=== PATIENT | male | born 1940 | race Caucasian/White ===

== ENCOUNTER → 2018-08-22 | Day surgery (SDC) | payer MEDICARE ==
[2018-08-17 11:31] LABS: BASOPHILS % (AUTO) 0.6 % (0-1); EOSINOPHILS # (AUTO) 0.2 X10'3 (0-0.9); EOSINOPHILS % (AUTO) 2.7 % (0-6); LYMPHOCYTES # (AUTO) 1.6 X10'3 (1.1-4.8); LYMPHOCYTES % (AUTO) 21.2 % (21-51); MEAN CORPUSCULAR HEMOGLOBIN 32.4 PG (27.0-31.0); MEAN CORPUSCULAR HGB CONC 34.7 g/dL (33.0-36.5); MEAN CORPUSCULAR VOLUME 93.4 FL (78-98); MEAN PLATELET VOLUME 9.2 FL (7.4-10.4); MONOCYTES # (AUTO) 0.6 X10'3 (0-0.9); MONOCYTES % (AUTO) 8.3 % (2-12); NEUTROPHILS # (AUTO) 5.2 X10'3 (1.8-7.7); NEUTROPHILS % (AUTO) 67.2 % (42-75); PRE OP HEMATOCRIT 41.3 % (42.0-52.0); PRE OP HEMOGLOBIN 14.3 g/dL (14.0-17.9); PRE OP PLATELET COUNT 190 X10'3 (140-440); RED BLOOD COUNT 4.43 X10'6 (4.70-6.10); RED CELL DISTRIBUTION WIDTH 13.2 % (11.5-14.5)
[2018-08-17 11:44] LABS: ALBUMIN 3.7 G/DL (3.4-5.0); ALBUMIN/GLOBULIN RATIO 1.1 (1.1-1.5); ALKALINE PHOSPHATASE 63 IU/L (46-116); BLOOD UREA NITROGEN 24 MG/DL (7-18); CALCIUM 9.4 MG/DL (8.5-10.1); CHLORIDE 109 MMOL/L (99-107); CREATININE 1.41 MG/DL (0.60-1.10); PRE OP ALT 25 U/L (30-65); PRE OP ANION GAP 6 (8-16); PRE OP AST 14 U/L (10-37); PRE OP BILIRUB, TOTAL 0.4 MG/DL (0.0-1.0); PRE OP GLUCOSE 102 MG/DL (70-104); PRE OP POTASSIUM 3.9 MMOL/L (3.4-5.1); PRE OP SODIUM 143 MMOL/L (135-145); TOTAL CARBON DIOXIDE 27.8 MMOL/L (24-32); TOTAL PROTEIN 7.2 G/DL (6.4-8.2); eGFR 49 ML/MIN
[2018-08-17 12:21] LABS: CLARITY,URINE CLEAR (Clear); COLOR,URINE YELLOW (Yellow); GLUCOSE, URINE NEGATIVE (Neg); KETONES,URINE NEGATIVE (Neg); LEUKOCYTE ESTERASE ,URINE NEGATIVE (Neg); NITRITES, URINE NEGATIVE (Neg); OCCULT BLOOD,URINE NEGATIVE (Neg); PROTEIN,URINE NEGATIVE (Neg); UROBILINOGEN,URINE 0.2 E.U/dL (0.2-1.0)
[2018-08-17 12:22] LABS: UA COLLECTION TYPE NON-SPECIFIED
[~2018-08-22] VITALS: Ht 180.3 cm; Wt 83.6 kg
[2018-08-22] VITALS (9 sets, daily range): BP systolic 106–138; BP diastolic 53–76
[~2018-08-22] MED LIST: AMLO2.5T2 PO; ARGI500C9 PO; ASPI-1265 PO; BEET ROOT PO; CAL1TABL8 PO; CHRO1000 PO; CLINDAmcin 900mg/NS 50ml IVPB 50 ML IV ONE; COENZYME B COMPLEX PO; FESO8TAB PO; LACT1CAP65 PO; LIDOcaine 1% 30ml preserv. free vial ONE; TYRO500C2 PO; UBID1CAP2 PO; [UNRECOGNIZED DRUG - OTHER] PO; [UNRECOGNIZED DRUG - OTHER] PO; famotidine 20mg tablet PO ONE; fentaNYL/PF 50MCG/1 ML 2ML syringe ONE; meperidine/PF 25mg/ml syringe IV PRN; midazolam 2 mg/2 ml injection ONE; morphine 4 MG/ML inj SYRINge IV PRN; ondansetron/PF 4mg/2ml inj IV PRN; povidone-iodine 10% topical ointment 28.4gm TP ONE; proCHLORperazine 10 MG/2 ml inj IV PRN; propofol inj 20 ML IV ONE; ringers solution, lacted 1,000 ML IV SCH
--- NOTE | 2018-08-22 12:45 | NUR ---
Received from OR via [facility] , accompanied by Anesthesiologist dr. Maldonado and report given by Anesthesiolgist. Pt sleepy, easily arousable. Drsg to upper back x 2 CDI. Pt denies pain and nausea.
--- NOTE | 2018-08-22 14:35 | NUR ---
PT WAS DISCHARGED TO HOME VIA W/C SAFELY. PT AND SPOUSE BOTH STATE UNDERSTANDING REGARDING ALL DC INSTRUCTIONS. ALL BELONGINGS W/ PT UPON DC TO HOME INCLUDING GLASSES. DRSG X 2 TO MIDDLE BACK CDI. PT DENIES PAIN AND NAUSEA AND STATED READINESS FOR DC TO HOME. PT DC'D TO PERSONAL VEHICLE BEING DRIVEN BY HIS . Addendum: 08/22/18 at 1608 by Shasta Cee RN DC TIME WAS ACTUALLY 1335
== END | disposition home or self-care (01) ==
LOC: PAS 08:35
PROVIDERS: ATTEND Surgery
DX: L72.8 Other follicular cysts of the skin and subcutaneous tissue (principal); I10 Essential (primary) hypertension; G20 Parkinson's disease; Z90.49 Acquired absence of other specified parts of digestive tract; Z98.890 Other specified postprocedural states; Z88.0 Allergy status to penicillin; Z88.2 Allergy status to sulfonamides; C61 Malignant neoplasm of prostate
CPT/HCPCS: 21932; 36415; 80053; 81003; 82948; 85025; 93005; J2250; J2704; J3010; J3490; 88304; A6449; A7000; J7120